=== PATIENT | female | born 1995 | race Two or more races ===

== ENCOUNTER 2016-10-05 12:49 | Emergency (ER) | payer SELFPAY ==
--- NOTE | 2016-10-05 14:17 | PHYS DOC ---
General Chief Complaint: SKIN PROBLEM Stated Complaint: SKIN PROBLEM Time Seen by MD: 14:13 Source: patient Exam Limitations: no limitations Problems: History of Present Illness Initial Comments Pt is 21/F to ED with mom c/o L axillary skin problem. Pt states past 3 days painful small bump, "popped" last night with some yellow discharge. No fever/chills/malaise, no prearrival tx, pt very anxious as her mom told her she needed to come here for biopsy to r/o melanoma. Td not updated , no other arm sx or pain c/o. Onset: last week Severity: mild Pain/Injury Location: left arm Method of Injury: unknown Modifying Factors: worse with jarring, worse with movement Allergies: Coded Allergies: No Known Drug Allergies (Unverified , 08/19/14) verified with pt Past Medical History Medical History: no pertinent history Surgical History: noncontributory Social History Smoker: non-smoker Alcohol: none Drugs: none Review of Systems Constitutional: denies chills, denies fever Respiratory: denies cough, denies shortness of breath Cardiovascular: denies chest pain, denies palpitations Gastrointestinal: denies nausea, denies vomiting Musculoskeletal: denies back pain, denies joint pain, denies muscle pain, denies neck pain Skin: see HPI Psychiatric/Neurological: denies headache, denies numbness, denies paresthesia Physical Exam General Appearance: mild distress, obese Neck: non-tender, supple Cardiovascular/Respiratory: normal peripheral pulses, normal breath sounds, no respiratory distress Back: no CVA tenderness, no vertebral tenderness Neurologic/Tendon: normal sensation, normal motor functions, normal tendon functions, responds to pain, no evidence tendon injury Psychiatric: alert, oriented x 3 Skin: warm/dry (L axilla appears to be small skin tag with mild erythema at base, spontaneous drain noted no purulence mild TTP) Departure Time of Disposition: 14:14 Disposition: 01 HOME, SELF-CARE Diagnosis: left axillary cellulitis Condition: GOOD Patient Instructions: Cellulitis, [id number], VIS, Tetanus, Diphtheria (Td); Tetanus, Diphtheria, Pertussis (Tdap) - CDC Additional Instructions: OTC tylenol/ibuprofen as needed. Warm compresses 4 times daily. Rx: bactrim ds, bactroban Follow up with your doctor in 5-7 days if no better. Return to ED with new or changing symptoms. INGRID MARTÍNEZ DO October 05, 2016 14:17
[2016-10-05] MEDS ORDERED: DIPHTH,PERTUSS(ACELL),TET TOX 0.5 ML DISP.SYRIN. VAX IM ONE (14:45)
[2016-10-05 14:50] VITALS: BP 155/97
== END 2016-10-05 14:50 | disposition home or self-care (01) ==
LOC: ER 12:49
DX: L03.112 Cellulitis of left axilla (principal)
CPT/HCPCS: 90471; 90715; 99283-25